=== PATIENT | female | born 1970 | race African-American/Black ===

== ENCOUNTER 2016-05-23 06:07 | Day surgery (SDC) | payer SELFPAY ==
[2016-05-12 14:34] VITALS: BMI 24.3
[2016-05-23] MEDS ORDERED: HEPARIN NA (PORCINE) 5,000 UNITS/ML 1ML VIAL ONE (06:54)
[2016-05-23] MEDS ORDERED: BACITRACIN 30 GM TUBE TOPICAL OINTMENT ONE (07:02)
[2016-05-23] MEDS ORDERED: LIDOCAINE 1%-EPI 1:100,000 30 ML MDV IJ ONE (07:02)
[2016-05-23] MEDS ORDERED: LIDOCAINE HCL 1%, 10 MG/ML (20ML VIAL) ONE ×2 (07:02→08:02)
[2016-05-23] MEDS ORDERED: EPINEPHrine/PF 1 MG/1 ML (1:1,000) AMPULE ONE ×2 (07:02→08:02)
[2016-05-23] MEDS ORDERED: MIDAZOLAM HCL 2 MG/2 ML SINGLE DOSE VIAL ONE (08:08)
[2016-05-23] MEDS ORDERED: DESFLURANE GAS 240 ML BOTTLE IH ONE (08:32)
[2016-05-23] MEDS ORDERED: ROCURONIUM BROMIDE 50 MG/5 ML VIAL ONE (10:53)
[2016-05-23] MEDS ORDERED: BUPIVACAINE HCL/PF 2.5 MG/ML - 30 ML VIAL IJ ONE (10:53)
[2016-05-23] MEDS ORDERED: BUPIVACAINE HCL/PF 0.25% (2.5MG/ML) 10 ML VIAL IJ ONE (10:56)
[2016-05-23] MEDS ORDERED: ONDANSETRON 4 MG/2 ML VIAL IVPUSH ONE (12:20)
[2016-05-23] MEDS ORDERED: LACTATED RINGERS SOLUTION 1,000 ML IV SCH (13:00)
[2016-05-23] MEDS ORDERED: morphine CARPU-JECT 10 MG/1 ML DISP.SYRIN IVPUSH PRN (13:00)
[2016-05-23] MEDS ORDERED: ONDANSETRON 4 MG/2 ML VIAL IVPB PRN (13:59)
[2016-05-23] MEDS ORDERED: PROMETHAZINE HCL 25 MG/1 ML VIAL IVPUSH PRN (14:01)
[2016-05-23] MEDS: CEFAZOLIN 1 GM/D5W 50 ML IVPB SCH ×2 (14:29→20:12)
[2016-05-23] MEDS: morphine CARPU-JECT 2 MG/1 ML DISP.SYRIN IVPUSH PRN ×2 (15:06→20:11)
--- NOTE | 2016-05-23 18:44 | PN ---
Progress Note (short form) - Note Progress Note: post op check No collections, VSSAF NIMISHA's thin and functioning OOB ambulating SQ heparin scheduled for AM Plan for discharge in AM
[2016-05-23] MEDS: oxyCODONE HCL 5 MG TABLET PO PRN (19:17)
--- NOTE | 2016-05-23 20:46 | OP ---
DATE OF OPERATION: 05/23/2016 TITLE OF PROCEDURE: Abdominoplasty with bilateral flank liposuction. PREOPERATIVE DIAGNOSIS: Abdominal deformity. POSTOPERATIVE DIAGNOSIS: Abdominal deformity. ANESTHESIA: General endotracheal anesthesia. DESCRIPTION OF PROCEDURE: Patient is seen in the holding area, counseled on all risks, benefits, and alternatives to the procedure, understands and agrees to proceed. She is marked, awake, aware of incisions resulting in scars. She is given 5000 units of subcutaneous heparin prior to the OR. Brought to the operating room, placed in a supine position. All extremities and pressure points carefully padded. Position is checked by surgical and anesthesia teams. She is given 2 g of Ancef preoperatively. Sequential compression stockings are applied. Anesthesia is then given. She is then prepped and draped in standard surgical fashion. A timeout is called. Patient, procedure, incision sites are verified. Incision is made along the infra-pannicular crease, carried down to the level of the abdominal wall fascia. Dissection is then carried superiorly to the level of the umbilicus. The umbilicus is then circumcised and developed in a fiber fatty stalk. Dissection is then carried to the xiphoid process in the midline, costal margins bilaterally. At this point, the midline plication is then performed in 2 layers, using 1 Prolene suture. The 1st layer is a series of interrupted buried [id number] suture. The 2nd is a running, locking suture. One line is performed above the umbilicus, the 2nd is performed below the umbilicus. Adequate space is given for translocation of the umbilicus. The patient is brought to a flexed position. Hemostasis meticulously achieved. The wounds are copiously irrigated with normal saline. The flap is then transposed and the excess skin and fat are excised. At this point, the skin is tailor tacked and the position of the umbilicus is marked. Hemostasis is once again carefully inspected and achieved, and with the skin tailor tacked, a Star Trek pattern incision is made over the abdominoplasty flap to accept the umbilicus. The umbilicus is then trimmed in a similar pattern. It is translocated through the defect and the flap and secured with a series of buried deep dermal 3-0 Monocryl suture followed by a series of interrupted 5-0 nylon suture. The inferior flap from the Star Trek pattern on the abdominoplasty flap was then centered to an inferior pie wedge notch on the umbilicus. Size 10 are brought out through the lateral extent of the incisions. At this point, tumescent solution is then infiltrated bilaterally into the lateral flanks. A total of 20 mL of 0.25% Marcaine plain is injected into the abdominal fascia. The tumescent solution is roughly 300 mL per side. The mixture is a liter of normal saline with 20 mL of 1% lidocaine plain and 1 ampule of 1:100,000 epinephrine. After waiting a full 20 minutes while other ports of the operation are continued, liposuction is performed on bilateral flanks. 250 mL of is achieved from each flank. The closure of the abdominoplasty flap is performed over the 2 drains which is secured with 2-0 silk drain sutures. This is done with a series of interrupted buried superficial fascial system, Mu layer 2-0 Vicryl suture followed by a series of interrupted buried deep dermal 3-0 Monocryl suture followed by a running subcuticular 3-0 Monocryl suture. Several 5-0 nylon sutures are used to perfect the closure. All tissues appear pink and viable at the end of the procedure. Dressings are applied with bacitracin, Xeroform on the umbilicus. A half inch full length Steri-Strips along the abdominal wall incision and an abdominal binder is applied. Patient woken from anesthesia, transferred to recovery without complication. Please note that the patient's hospital bed is flexed at 30 degrees at the waist, which is the degree to which she was flexed for the closure. Maribel [id number]
[2016-05-24] MEDS: morphine CARPU-JECT 2 MG/1 ML DISP.SYRIN IVPUSH PRN ×2 (01:15→09:49)
[2016-05-24] MEDS: CEFAZOLIN 1 GM/D5W 50 ML IVPB SCH ×2 (03:22→08:18)
[2016-05-24] MEDS: oxyCODONE HCL 5 MG TABLET PO PRN (06:00)
--- NOTE | 2016-05-24 07:33 | PN ---
Progress Note (short form) - Note Progress Note: NIMISHA thin and slowing VSS AF Ambuilating improving with IS Pain well controled on PO OK for discharge with instructions
[2016-05-24] MEDS ORDERED: HEPARIN NA (PORCINE) 5,000 UNITS/ML 1ML VIAL SQ SCH (08:00)
[2016-05-24 10:24] VITALS: BP 112/69; PULSE 71; TEMP 98.1
--- NOTE | 2016-05-25 09:40 | PATH ---
Surgical Pathology Report Patient Name: SALEEM BANSAL [facility]. Rec. #: [id number] /Age/Gender: 1970 (Age: 45) / F Account: [id number] Location: [facility] AMBUL[facility]ORY Taken: 05/23/2016 Received: 05/23/2016 Reported: 05/25/2016 Physicians: Nick Spann Specimen(s) Received ABDOMINAL SKIN AND FAT Clinical History Cosmetic Final Diagnosis SKIN AND SOFT TISSUE, ABDOMEN, ABDOMINOPLASTY: UNREMARKABLE SKIN AND SUBCUTANEOUS ADIPOSE TISSUE (GROSS ONLY). Electronically Signed Nam Velasquez M.D. Gross Description Received fresh, labeled "abdominal skin and fat," is a 643 g, 23.0 x 21.0 x 1.8 cm aggregate of 2 unoriented, triangular portions of yip brown skin with underlying soft tissue. Sectioning reveals homogeneous yellow, lobulated adipose tissue. The epidermal surfaces are unremarkable. No sections are submitted, gross only. 05/24/2016 formerly [facility]05/24/2016
== END 2016-05-24 10:31 | disposition home or self-care (01) ==
LOC: FASU 06:07 → FM/S 13:00 → FASU 05-24 10:31
PROVIDERS: ATTEND Plastic Surgery
PROC: 0J083ZZ Alteration of Abdomen Subcutaneous Tissue and Fascia, Percutaneous Approach (ICD-10-PCS; 2016-05-23)
PROC: 0J080ZZ Alteration of Abdomen Subcutaneous Tissue and Fascia, Open Approach (ICD-10-PCS; principal; 2016-05-23 08:57)
DX: Z41.1 Encounter for cosmetic surgery (principal); M95.8 Other specified acquired deformities of musculoskeletal system
CPT/HCPCS: 84703; 88300-TC; 94010; 94760; J1644